=== PATIENT | male | born 2000 | race Two or more races ===

== ENCOUNTER → 2023-10-31 | Emergency (ER) | payer SELFPAY ==
[~2023-10-31] VITALS: Ht 162.6 cm; Wt 68.0 kg
[~2023-10-31] MED LIST: ACETAMINOPHEN ES 500 MG TABLET ONE; KETOROLAC TROMETHAMINE INJ 30 MG/ML VIAL ONE
[2023-10-31 17:03] VITALS: BP 145/58; TEMP 98.6; O2SAT 100
[2023-10-31] MEDS: ACETAMINOPHEN ES 500 MG TABLET PO ONE (17:15)
[2023-10-31] MEDS: KETOROLAC TROMETHAMINE INJ 30 MG/ML VIAL IM ONE (17:38)
== END | disposition left against medical advice (07) ==
LOC: ER 17:46
DX: M25.512 Pain in left shoulder (principal)
CPT/HCPCS: J1885